=== PATIENT | male | born 1975 | race Two or more races ===

== ENCOUNTER 2021-08-11 23:37 | Emergency (ER) | payer SELFPAY ==
[~2021-08-11] VITALS: Ht 167.6 cm; Wt 81.8 kg
--- NOTE | 2021-08-12 02:20 | PHYS DOC ---
Past Medical History Past Surgical History: No Surgical History General Adult EDM: Chief Complaint: ABDOMINAL PAIN HPI: HPI: Patient is a 46 year old male presents with the chief complaint of left sided suprapubic pain that radiates to left testicle and left flank. Associated symptoms include urinary frequency without dysuria. Patient states symptoms have been ongoing to 1 month but increased over the last few days. Patient states previously seen at clinic and diagnoised with urinary tract infection. Review of Systems: Review of Systems: Constitutional: Denies fever or chills. [] Eyes: Denies change in visual acuity. [] HENT: Denies nasal congestion or sore throat. [] Respiratory: Denies cough or shortness of breath. [] Cardiovascular: Denies chest pain or edema. [] GI: Denies , nausea, vomiting, bloody stools or diarrhea. [positive abdominal pain] : Denies dysuria. [positive urinary frequncy positive left testicle pain] Musculoskeletal: Denies back pain or joint pain. [] Integument: Denies rash. [] Neurologic: Denies headache, focal weakness or sensory changes. [] Endocrine: Denies polyuria or polydipsia. [] Lymphatic: Denies swollen glands. [] Psychiatric: Denies depression or anxiety. [] Heart Score: C/O Chest Pain: N/A Risk Factors: Risk Factors: DM, Current or recent (<one month) smoker, HTN, HLP, family history of CAD, obesity. Risk Scores: Score 0 - 3: 2.5% MACE over next 6 weeks - Discharge Home Score 4 - 6: 20.3% MACE over next 6 weeks - Admit for Clinical Observation Score 7 - 10: 72.7% MACE over next 6 weeks - Early Invasive Strategies Physical Exam: PE: Constitutional: Well developed, well nourished, no acute distress, non-toxic appearance. [] HENT: Normocephalic, atraumatic, bilateral external ears normal, oropharynx moist, no oral exudates, nose normal. [] Eyes: PERRLA, EOMI, conjunctiva normal, no discharge. [] Neck: Normal range of motion, no tenderness, supple, no stridor. [] Cardiovascular:Heart rate regular rhythm, no murmur [] Lungs & Thorax: Bilateral breath sounds clear to auscultation [] Abdomen: Bowel sounds normal, soft, no tenderness, no masses, no pulsatile masses. [] Skin: Warm, dry, no erythema, no rash. [] Back: No tenderness, no CVA tenderness. [] Extremities: No tenderness, no cyanosis, no clubbing, ROM intact, no edema. [] Neurologic: Alert and oriented X 3, normal motor function, normal sensory function, no focal deficits noted. [] Psychologic: Affect normal, judgement normal, mood normal. [] Current Patient Data: Vital Signs: Vital Signs Date Time Temp Pulse Resp B/P (MAP) Pulse Ox O2 Delivery O2 Flow Rate FiO2 08/12/21 01:57 98.7 67 20 128/86 (100) 98 Room Air 98.7 EKG: EKG: [] Radiology/Procedures: Radiology/Procedures: [] Course & Med Decision Making: Course & Med Decision Making Pertinent Labs and Imaging studies reviewed. (See chart for details) []Ua without signs of infection Testicular pain x 1 month Do not suspect torsion based upon length of symptoms and exam. Will rx doxy and ultram. [place] Disclaimer: Marylu Disclaimer: This electronic medical record was generated, in whole or in part, using a voice recognition dictation system. Departure Departure Impression: Primary Impression: Urinary frequency Additional Impression: Epididymitis Disposition: HOME / SELF CARE / HOMELESS Condition: STABLE Referrals: UNKNOWN PCP NAME (PCP) Patient Instructions: Epididymitis, Urinary Frequency Scripts Doxycycline Monohydrate (DOXYCYCLINE MONOHYDRATE) 100 Mg Capsule 1 CAP PO BID, #20 CAP Prov: TIMOTHY CHO DO 08/12/21 Tramadol Hcl (ULTRAM) 50 Mg Tablet 1 TAB PO PRN Q6HRS PRN for pain MDD 4 Tablet(s) for 7 Days, #28 TAB 0 Refills Prov: TIMOTHY CHO I DO 08/12/21 TIMOTHY CHO I DO Aug 12, 2021 02:20
[2021-08-12] MEDS ORDERED: KETOROLAC 60 MG/2 ML VIAL. IM ONE (02:30)
[2021-08-12 02:31] LABS: BILIRUBIN,URINE NEGATIVE (NEG); CLARITY,URINE CLEAR; COLOR,URINE YELLOW; NITRITE,URINE NEGATIVE (NEG); PH,URINE 5.5 (<5.0-8.0); PROTEIN,URINE NEGATIVE (NEG-TRACE); UROBILINOGEN,URINE 0.2 mg/dL (0.2 mg/dL)
[2021-08-12 02:37] VITALS: BP 139/76
[2021-08-12 02:38] LABS: BACTERIA,URINE 0 /HPF (0-FEW); WBC,URINE OCC /HPF (0-4)
[2021-08-12] MEDS ORDERED: DOXY-181 PO (02:48)
[2021-08-12] MEDS ORDERED: TRAM-48 PO (02:48)
== END 2021-08-12 02:59 | disposition home or self-care (01) ==
LOC: ER 23:37
DX: N45.1 Epididymitis (principal); R35.0 Frequency of micturition
CPT/HCPCS: 81001; 96372; 99283; J1885